=== PATIENT | female | born 1955 | race Caucasian/White ===

== ENCOUNTER → 2021-10-13 | Outpatient (CLI) | payer MEDICARE ==
[~2021-10-13] MED LIST: AMIODARONE HCL400 MG PO; BUMETANIDE1 MG PO; CARVEDILOL25 MG PO; DIGOX250 MCG PO; ELIQUIS 5 MG TAB5 MG PO; ENTRESTO 24 MG1 EACH PO; HYDROCODON-ACE1 EAC2 PO; K-DUR TAB 20 M20 MEQ PO; LEVOFLOXACIN250 MG PO; MAGOX 400400 MG PO; MEDROXYPROGESTE10 MG PO; XARELTO20 MG PO; ZAROXOLYN/DIUL2.5 MG PO
[2021-10-13 13:27] LABS: HEMOGLOBIN 11.7 gm/dl (12.3-15.3); RED BLOOD COUNT 3.97 M/UL (4.00-5.10); WHITE BLOOD COUNT 14.5 K/UL (4.5-11.0)
== END ==
LOC: OPSV2 12:30
PROVIDERS: Obstetrics & Gynecology
DX: Z01.818 Encounter for other preprocedural examination (principal); N95.0 Postmenopausal bleeding
CPT/HCPCS: 85025; 93005

== ENCOUNTER 2021-10-18 16:40 | Observation (INO) | payer MEDICARE, MEDICAID ==
[~2021-10-18] VITALS: Ht 162.6 cm; Wt 134.7 kg
[2021-10-18 17:33] LABS: RED BLOOD COUNT 3.09 M/UL (4.00-5.10); WHITE BLOOD COUNT 14.6 K/UL (4.5-11.0)
[2021-10-18 17:36] LABS: HEMOGLOBIN 9.3 gm/dl (12.3-15.3)
[2021-10-18 18:17] LABS: BUN/CREATININE RATIO 22 (0-10)
--- NOTE | 2021-10-18 22:20 | NUR ---
NOTIFIED TIKA THAT PATIENT'S BP WAS 77/33 AND CURRENTLY ON 2ND BOLUS. ADVISED OF H&H; HGB 9.8 HCT 27.9 - WAS TOLD TO DO RECHECK AT 2245. TIKA ADVISED DUE TO DIAGNOSIS TO CONTACT OBGYN.
[2021-10-18 22:56] LABS: HEMOGLOBIN 7.8 gm/dl (12.3-15.3)
[2021-10-19 06:26] LABS: HEMOGLOBIN 7.9 gm/dl (12.3-15.3); WHITE BLOOD COUNT 14.8 K/UL (4.5-11.0)
[2021-10-19 06:27] LABS: RED BLOOD COUNT 2.63 M/UL (4.00-5.10)
--- NOTE | 2021-10-19 17:46 | NUR ---
1630 PT BACK FROM OR, SISTER AT BEDSIDE. PT C\O IT BEING DONE SO LATE IN THE DAY. PT ORDERED A TRAY PER FAMILYS REQUEST., PT AWAITING FOR DR FOR DISCHARGE ORDERS
--- NOTE | 2021-10-19 23:30 | NUR ---
Patient left at 2200 AMA. Patient was suppose to have been DC but due to the orders not being wrote correctly/properly, the DC did not happen. Patient was upset that she had not gotten her medication, therefore left AMA.
== END 2021-10-19 21:57 | disposition left against medical advice (07) ==
LOC: ER1 16:40 → M/S 18:35 → CDU 18:35 → M/S 20:28
PROVIDERS: Internal Medicine; Student in an Organized Health Care Education/Training Program; ADMIT Obstetrics & Gynecology
DX: N95.0 Postmenopausal bleeding (principal); N84.0 Polyp of corpus uteri; I25.10 Atherosclerotic heart disease of native coronary artery without angina pectoris; I50.9 Heart failure, unspecified; E66.01 Morbid (severe) obesity due to excess calories; Z95.0 Presence of cardiac pacemaker; Z68.43 Body mass index [BMI] 50.0-59.9, adult; Z20.822 Contact with and (suspected) exposure to COVID-19
CPT/HCPCS: 80048; 80053; 82550; 82553; 83874; 84484; 85014; 85018; 85025; 86850; 86900; 86901; 93005; 99285; G0378; J7030; J7120; U0002